=== PATIENT | male | born 1955 | race Hispanic/Latino ===

== ENCOUNTER 2022-05-11 02:53 | Inpatient (IN) | payer BC, OTHER ==
[2022-05-11] VITALS (7 sets, daily range): BP systolic 101–143; BP diastolic 51–81
[~2022-05-11] VITALS: Ht 177.8 cm; Wt 116.6 kg
[2022-05-11] MEDS ORDERED: CEFTRIAXONE 1 GM VIAL IV STA (03:08)
[2022-05-11] MEDS ORDERED: SODIUM CHLORIDE 0.9% 1000ML 1,000 ML IV ONE (03:15)
[2022-05-11] MEDS ORDERED: ACETAMINOPHEN 325 MG TAB PO ONE (03:15)
[2022-05-11] MEDS ORDERED: ACETAMINOPHEN 325 MG TAB ONE (03:29)
[2022-05-11] MEDS ORDERED: CEFTRIAXONE 1 GM VIAL ONE (03:36)
[2022-05-11 03:44] LABS: BASOPHILS % 0.2 % (0.0-1.0); HEMATOCRIT 43.1 % (38.2-49.6); HEMOGLOBIN 15.1 g/dL (14.0-18.0); LYMPHOCYTES # (AUTO) 1.6 (1.0-3.2); LYMPHOCYTES % 9.2 % (18.0-39.1); MEAN CORPUSCULAR HEMOGLOBIN 31.1 pg (28-32); MEAN CORPUSCULAR VOLUME 88.7 fL (81-99); MONOCYTES # (AUTO) 0.2 (0.2-0.8); MONOCYTES % 1.1 % (4.4-11.3); NEUTROPHILS # (AUTO) 14.9 (2.1-6.9); PLATELET COUNT 155 x10e3/uL (140-360); RED BLOOD COUNT 4.86 x10e6/uL (4.3-5.7); RED CELL DISTRIBUTION WIDTH 12.8 % (11.7-14.4)
[2022-05-11 03:47] LABS: CLARITY,URINE CLOUDY (CLEAR); COLOR,URINE YELLOW (YELLOW); LEUKOCYTE ESTERASE ,URINE NEGATIVE (NEGATIVE); PROTEIN,URINE DIPSTICK NEGATIVE (NEGATIVE)
[2022-05-11 03:48] LABS: KETONES,URINE TRACE (NEGATIVE); NITRITE,URINE POSITIVE (NEGATIVE); URINE UROBILINOGEN 0.2 mg/dL (0.2 - 1)
[2022-05-11 03:52] LABS: BACTERIA,URINE MANY /HPF; EPITHELIAL CELLS,URINE RARE /LPF
[2022-05-11 03:54] LABS: INR 1.13; PROTHROMBIN TIME 14.7 seconds (11.9-14.5)
[2022-05-11 03:55] LABS: PARTIAL THROMBOPLASTIN TIME 36.4 seconds (23.8-35.5)
[2022-05-11 04:04] LABS: ALBUMIN 3.6 g/dL (3.5-5.0); ANION GAP 16.2 mmol/L (8-16); CALCIUM 9.6 mg/dL (8.4-10.2); CREATININE, SERUM 1.07 mg/dL (0.72-1.25); POTASSIUM 4.2 mmol/L (3.5-5.1)
[2022-05-11] MEDS ORDERED: SODIUM CHLORIDE 0.9% IV ONE (04:15)
[2022-05-11] MEDS ORDERED: SODIUM CHLORIDE 0.9% 500ML 500 ML ONE ×2 (04:37→23:06)
[2022-05-11] MEDS ORDERED: SODIUM CHLORIDE FLUSH 10 ML SYR INJ PRN (05:30)
[2022-05-11] MEDS ORDERED: ONDANSETRON HCL INJ 2MG/ML 2ML 2 MG/ML VIAL IV PRN (05:30)
[2022-05-11] MEDS ORDERED: Morphine 4mg INJECTION 4 MG/ML INJ IV PRN (05:30)
[2022-05-11 08:46] LABS: B-TYPE NATRIURETIC PEPTIDE2 15.4 pg/mL (0-100)
[2022-05-11 08:54] LABS: THYROID STIMULATING HORMONE 0.94 uIU/mL (0.350-4.940)
[2022-05-11] MEDS ORDERED: HUMULIN R100 UNIT/2 SQ (09:48)
[2022-05-11] MEDS ORDERED: ZESTRIL10 MG PO (09:48)
[2022-05-11] MEDS ORDERED: NOVOLIN NPH SC (09:48)
[2022-05-11] MEDS ORDERED: ATORVASTATIN CA20 MG PO (09:50)
[2022-05-11] MEDS: DOCUSATE SODIUM 100 MG CAP PO SCH (09:50)
[2022-05-11] MEDS: SENNOSIDES 8.6 MG TAB PO SCH (09:51)
[2022-05-11] MEDS ORDERED: DEXTROSE 50% SYRINGE 50 ML IV PRN (11:30)
[2022-05-11] MEDS: INSULIN REGULAR, HUMAN 100 UNIT/1 ML SQ SCH ×5 (11:47→20:55)
[2022-05-11] MEDS: ACETAMINOPHEN 325 MG TAB PO PRN ×2 (16:00→21:29)
[2022-05-11] MEDS: ENOXAPARIN SOD INJ 40 MG/0.4 ML SYR SC SCH (16:01)
[2022-05-11] MEDS ORDERED: INSULIN ISOPHANE SC SCH (17:00)
[2022-05-11] MEDS: ATORVASTATIN 40 MG TAB PO SCH (20:50)
[2022-05-11] MEDS: TAMSULOSIN HCL 0.4 MG CAP PO SCH (20:50)
[2022-05-11] MEDS: NPH, HUMAN INSULIN ISOPHANE 100 UNIT/1 ML 3ML VIAL SQ SCH (20:54)
[2022-05-12] VITALS (8 sets, daily range): BP systolic 96–133; BP diastolic 53–78
[2022-05-12 05:35] LABS: BASOPHILS # (AUTO) 0.1 (0.0-0.1); BASOPHILS % 0.3 % (0.0-1.0); EOSINOPHILS # (AUTO) 0.1 (0.0-0.4); EOSINOPHILS % 0.4 % (0.0-6.0); HEMOGLOBIN 13.3 g/dL (14.0-18.0); LYMPHOCYTES # (AUTO) 1.3 (1.0-3.2); LYMPHOCYTES % 7.4 % (18.0-39.1); MEAN CORPUSCULAR HEMOGLOBIN 30.9 pg (28-32); MEAN CORPUSCULAR HGB CONC 34.1 g/dL (31-35); MEAN CORPUSCULAR VOLUME 90.7 fL (81-99); MONOCYTES # (AUTO) 1.4 (0.2-0.8); NEUTROPHILS # (AUTO) 14.1 (2.1-6.9); NEUTROPHILS % 82.7 % (38.7-80.0); PLATELET COUNT 143 x10e3/uL (140-360)
[2022-05-12 06:08] LABS: ALBUMIN 2.4 g/dL (3.5-5.0); ALBUMIN/GLOBULIN RATIO 0.7 (0.8-2.0); ANION GAP 12.4 mmol/L (8-16); CALCIUM 8.5 mg/dL (8.4-10.2); CREATININE, SERUM 0.76 mg/dL (0.72-1.25); POTASSIUM 3.4 mmol/L (3.5-5.1)
[2022-05-12] MEDS: LISINOPRIL 20 MG TAB PO SCH (09:35)
[2022-05-12] MEDS: DOCUSATE SODIUM 100 MG CAP PO SCH (09:35)
[2022-05-12] MEDS: SENNOSIDES 8.6 MG TAB PO SCH (09:35)
[2022-05-12] MEDS: INSULIN REGULAR, HUMAN 100 UNIT/1 ML SQ SCH ×7 (09:38→21:18)
[2022-05-12] MEDS: NPH, HUMAN INSULIN ISOPHANE 100 UNIT/1 ML 3ML VIAL SQ SCH ×2 (09:40→21:17)
[2022-05-12] MEDS ORDERED: POTASSIUM CHLORIDE 20 MEQ TAB CR PO STA (11:07)
[2022-05-12] MEDS ORDERED: MAGNESIUM OXIDE 400 MG TAB PO ONE (11:15)
[2022-05-12] MEDS: ENOXAPARIN SOD INJ 40 MG/0.4 ML SYR SC SCH (16:59)
[2022-05-12] MEDS: ACETAMINOPHEN 325 MG TAB PO PRN (17:00)
[2022-05-12] MEDS: ATORVASTATIN 40 MG TAB PO SCH (21:08)
[2022-05-12] MEDS: TAMSULOSIN HCL 0.4 MG CAP PO SCH (21:08)
[2022-05-13] VITALS (8 sets, daily range): BP systolic 109–138; BP diastolic 65–79
[2022-05-13 06:38] LABS: BASOPHILS % 0.3 % (0.0-1.0); EOSINOPHILS % 0.2 % (0.0-6.0); HEMATOCRIT 38.2 % (38.2-49.6); HEMOGLOBIN 12.9 g/dL (14.0-18.0); LYMPHOCYTES # (AUTO) 1.6 (1.0-3.2); LYMPHOCYTES % 14.1 % (18.0-39.1); MEAN CORPUSCULAR HEMOGLOBIN 30.4 pg (28-32); MEAN CORPUSCULAR HGB CONC 33.8 g/dL (31-35); MEAN CORPUSCULAR VOLUME 90.1 fL (81-99); MONOCYTES # (AUTO) 1.1 (0.2-0.8); MONOCYTES % 10.3 % (4.4-11.3); NEUTROPHILS # (AUTO) 8.2 (2.1-6.9); NEUTROPHILS % 74.2 % (38.7-80.0); PLATELET COUNT 175 x10e3/uL (140-360); RED BLOOD COUNT 4.24 x10e6/uL (4.3-5.7); RED CELL DISTRIBUTION WIDTH 13.2 % (11.7-14.4)
[2022-05-13 07:10] LABS: ALBUMIN 2.3 g/dL (3.5-5.0); ALBUMIN/GLOBULIN RATIO 0.6 (0.8-2.0); ANION GAP 10.5 mmol/L (8-16); CALCIUM 8.5 mg/dL (8.4-10.2); CREATININE, SERUM 0.72 mg/dL (0.72-1.25); POTASSIUM 3.5 mmol/L (3.5-5.1)
[2022-05-13] MEDS: INSULIN REGULAR, HUMAN 100 UNIT/1 ML SQ SCH ×7 (07:30→21:15)
[2022-05-13] MEDS: DOCUSATE SODIUM 100 MG CAP PO SCH (08:25)
[2022-05-13] MEDS: LISINOPRIL 20 MG TAB PO SCH (08:26)
[2022-05-13] MEDS: SENNOSIDES 8.6 MG TAB PO SCH (08:26)
[2022-05-13] MEDS: NPH, HUMAN INSULIN ISOPHANE 100 UNIT/1 ML 3ML VIAL SQ SCH ×2 (08:30→21:15)
[2022-05-13] MEDS ORDERED: POTASSIUM CHLORIDE 20 MEQ TAB CR PO STA (08:45)
[2022-05-13] MEDS ORDERED: CEPACOL SORE THROAT LOZENGES PO PRN (09:15)
[2022-05-13] MEDS: TAMSULOSIN HCL 0.4 MG CAP PO SCH (21:09)
[2022-05-13] MEDS: ATORVASTATIN 40 MG TAB PO SCH (21:09)
[2022-05-14 01:26] VITALS: BP 131/71
[2022-05-14 06:00] VITALS: BP 123/71
[2022-05-14 06:25] LABS: BASOPHILS % 0.4 % (0.0-1.0); EOSINOPHILS % 0.4 % (0.0-6.0); HEMATOCRIT 35.8 % (38.2-49.6); HEMOGLOBIN 12.9 g/dL (14.0-18.0); LYMPHOCYTES # (AUTO) 1.7 (1.0-3.2); LYMPHOCYTES % 16.7 % (18.0-39.1); MEAN CORPUSCULAR HEMOGLOBIN 33.6 pg (28-32); MEAN CORPUSCULAR VOLUME 93.2 fL (81-99); MONOCYTES % 10.2 % (4.4-11.3); NEUTROPHILS # (AUTO) 7.1 (2.1-6.9); NEUTROPHILS % 71.5 % (38.7-80.0); PLATELET COUNT 155 x10e3/uL (140-360); RED BLOOD COUNT 3.84 x10e6/uL (4.3-5.7); RED CELL DISTRIBUTION WIDTH 14.9 % (11.7-14.4)
[2022-05-14 07:29] LABS: ALBUMIN 2.3 g/dL (3.5-5.0); ALBUMIN/GLOBULIN RATIO 0.7 (0.8-2.0); ANION GAP 13.6 mmol/L (8-16); CALCIUM 8.2 mg/dL (8.4-10.2); CREATININE, SERUM 0.7 mg/dL (0.72-1.25); MAGNESIUM 1.8 MG/DL (1.3-2.1); POTASSIUM 3.6 mmol/L (3.5-5.1)
[2022-05-14] MEDS: INSULIN REGULAR, HUMAN 100 UNIT/1 ML SQ SCH ×2 (07:30→08:00)
[2022-05-14 08:21] VITALS: BP 147/83
[2022-05-14] MEDS: DOCUSATE SODIUM 100 MG CAP PO SCH (08:43)
[2022-05-14] MEDS: SENNOSIDES 8.6 MG TAB PO SCH (08:43)
[2022-05-14] MEDS: NPH, HUMAN INSULIN ISOPHANE 100 UNIT/1 ML 3ML VIAL SQ SCH (09:00)
[2022-05-14 09:04] VITALS: BP 147/83
[2022-05-14] MEDS: LISINOPRIL 20 MG TAB PO SCH (09:31)
[2022-05-14] MEDS ORDERED: FLOMAX0.4 MG PO (11:26)
[2022-05-14] MEDS ORDERED: ONDANSETRON HCL 4 MG ORAL DISINTEGRATING TAB PO PRN (12:15)
[2022-05-14] MEDS ORDERED: LEVOFLOXACIN250 MG PO (12:16)
== END 2022-05-14 13:07 | disposition home or self-care (01) | DRG 872 ==
LOC: ER 02:58 → ERHOLD 05:28 → MED/SURG3 08:18
PROVIDERS: ADMIT Internal Medicine; ATTEND Internal Medicine
DX: A41.59 Other Gram-negative sepsis (principal); D68.9 Coagulation defect, unspecified; N30.01 Acute cystitis with hematuria; E11.9 Type 2 diabetes mellitus without complications; R65.20 Severe sepsis without septic shock; R33.8 Other retention of urine; R79.89 Other specified abnormal findings of blood chemistry; E66.01 Morbid (severe) obesity due to excess calories; I10 Essential (primary) hypertension; Z68.36 Body mass index [BMI] 36.0-36.9, adult; N40.1 Benign prostatic hyperplasia with lower urinary tract symptoms; Z20.822 Contact with and (suspected) exposure to COVID-19
CPT/HCPCS: 36415; 51700; 71045; 74176; 80053; 81001; 82948; 83036; 83605; 83690; 83735; 83880; 84443; 85025; 85610; 85730; 87040; 87071; 87086; 87186; 87205; 93005; 93306; 99285; J0692; J0696; J1650; J1817; J7030; J7040

== ENCOUNTER 2022-05-22 12:21 | Emergency (ER) | payer OTHER ==
[~2022-05-22] VITALS: Ht 177.8 cm; Wt 116.6 kg
[~2022-05-22 12:21] MED LIST: ATORVASTATIN CA20 MG PO; FLOMAX0.4 MG PO; HUMULIN R100 UNIT/2 SQ; LEVOFLOXACIN250 MG PO; NOVOLIN NPH SC; ZESTRIL10 MG PO
[2022-05-22 14:10] LABS: COLOR,URINE YELLOW (YELLOW)
[2022-05-22 14:16] LABS: CLARITY,URINE SL CLOUDY (CLEAR); LEUKOCYTE ESTERASE ,URINE SMALL (NEGATIVE); NITRITE,URINE NEGATIVE (NEGATIVE)
[2022-05-22 14:17] LABS: PROTEIN,URINE DIPSTICK 2+ (NEGATIVE)
[2022-05-22 14:18] LABS: KETONES,URINE NEGATIVE (NEGATIVE)
[2022-05-22 14:19] LABS: URINE UROBILINOGEN 0.2 mg/dL (0.2 - 1)
[2022-05-22 14:39] LABS: BACTERIA,URINE RARE /HPF; RBC,URINE 21-50 /HPF (0-5)
== END 2022-05-22 15:03 | disposition home or self-care (01) ==
LOC: ER 12:28
DX: Z46.6 Encounter for fitting and adjustment of urinary device (principal); N39.0 Urinary tract infection, site not specified; I10 Essential (primary) hypertension; E11.9 Type 2 diabetes mellitus without complications
CPT/HCPCS: 51700; 81001; 99282